=== PATIENT | male | born 1950 | race Caucasian/White ===

== ENCOUNTER 2016-06-19 18:53 | Emergency (ER) | payer MEDICARE, OTHER ==
[2016-06-19] MEDS ORDERED: Nitroglycerin 2% Ointment 1 INCH/1 GM Packet ONE (19:13)
[2016-06-19] MEDS ORDERED: Morphine Sulfate 2 MG/ML SYRINGE ONE ×2 (19:28→20:02)
--- NOTE | 2016-06-19 19:39 | RAD ---
PORTABLE CHEST ONE VIEW 06/19/16 at 7:11 p.m. HISTORY: Right sided chest pain. FINDINGS/IMPRESSION: Comparison is made with the exam of 04/27/16. The heart is enlarged. There is increased density in the retrocardiac region. No pneumothoraces or l arge effusions are seen. There is no evidence of rona pulmonary edema. POS: [facility]
[2016-06-19 19:44] LABS: #Basophils 0.1 thou/uL (0.0-0.2); #Eosinphils 0.3 thou/uL (0.0-0.7); #Lymphocytes 1.6 thou/uL (1.20-3.40); #Monocytes 0.6 thou/uL (0.11-0.59); #Neutrophils 7.7 thou/uL (1.40-6.50); %Eosinophils 2.6 % (0.0-10.0); %Lymphocytes 15.4 % (21.0-51.0); %Monocytes 5.8 % (0.0-10.0); Hematocrit 41.2 % (42.0-52.0); Mean Platelet Volume 5.2 fL (7.4-10.4); Red Blood Cell (RBC) Count 4.59 mill/uL (4.70-6.10); White Blood Cell (WBC) Count 10.2 thou/uL (4.8-10.8)
[2016-06-19 19:56] LABS: PTT 30.5 SEC (22.9-36.1); Prothrombin Time 13.8 SEC (12.0-14.7)
[2016-06-19 20:01] LABS: ALT (SGPT) 24 U/L (0-55); AST (SGOT) 22 U/L (5-34); Alkaline Phosphatase 107 U/L (40-150); Anion Gap 20 mmol/L (10-20); BUN (Urea Nitrogen) 41 mg/dL (8.4-25.7); Bilirubin, Total 0.3 mg/dL (0.2-1.2); Calc. Creatinine Clearance 0 mL/min (70-130); Calcium 8.4 mg/dL (7.8-10.44); Carbon Dioxide 17 mmol/L (23-31); Chloride 107 mmol/L (98-107); Estimated GFR-MDRD 15; Globulin 2.6 g/dL (2.4-3.5); Protein, Total 6.4 g/dL (5.8-8.1)
[2016-06-19 20:03] LABS: Troponin I 0.012 ng/mL (< 0.028)
--- NOTE | 2016-06-19 20:55 | CT ---
CT OF THE CHEST WITHOUT CONTRAST 06/19/16 COMPARISON: None. HISTORY: Right sided chest pain since noon today. Patient began developing jaw pain about two to three hours ago. TECHNIQUE: Multiple contiguous axial images were obtained in a CT of the chest without contrast. Coronal reform ats were performed. FINDINGS: The patient has a small left pleural effusion. No suspicious pulmonary masses are seen. No focal inf iltrates are seen in the lungs. The heart is normal in size. There is a small pericardial effusion. Calcifications are seen in the coronary arteries and aorta. There is aneurysmal dilatation of the as cending aorta which measures 5.6 cm in greatest dimension. The descending aorta is normal in caliber . There is a trace amount of ascites adjacent to the liver. The patient is status post cholecystectomy . The other visualized subdiaphragmatic structures are unremarkable. The osseous structures are unremarkable. The chest wall soft tissues are unremarkable. IMPRESSION: 1. Small left pleural effusion. 2. Interval dilatation of the ascending aorta. POS: [facility]
--- NOTE | 2016-06-19 21:36 | ERRECORD ---
[facility] EMERGENCY RECORD HPI CHEST PAIN (21:37 JOHE) CHIEF COMPLAINT: Patient presents for evaluation of chest pain, ongoing. HISTORIAN: History provided by patient, Since 1200 today, patient reports gradual onset of pressure-like right sided chest pain which is constant, worsening, and radiates to the right shoulder, jaw and arm. Patient denies other symptoms including N&V, F&C, sweating, palpitations, SOB, abd. pain, leg pain/swelling, weakness, cough and other complaints. No trauma or recent illness. No personal or FH of CAD, DVT/PE, aneurysm (although later patient DID admit to having a thoracic aneurysm). LOCATION: Symptoms are localized, most severe in the right upper chest. QUALITY: Pain is dull in nature, described as pressure-like. SEVERITY: Maximum severity of symptoms severe, Currently symptoms are severe. TIME COURSE: Gradual onset of symptoms, Symptoms are worsening, are constant. ASSOCIATED WITH: No associated symptoms, No associated chills, No associated cough, No associated diaphoresis, No associated fever, No associated nausea, No associated palpitations, No associated shortness of breath, No associated trauma, No associated upper respiratory infection, No associated vomiting, Denies any other complaints. EXACERBATED BY: Patient's condition exacerbated by nothing. RELIEVED BY: Patient's condition relieved by nothing. RISK FACTORS: Coronary artery disease risk factors, No known cocaine use, no known coronary artery disease, no diabetes, no family history, include high cholesterol, include hypertension, no smoking, Thoracic aortic dissection risk factors, include aortic disease, no Burt Danlos syndrome, no first degree relative, include hypertension, no Marfan's syndrome, not , no history of Snell's disease, Pulmonary embolism risk factors, no coagulation disorder, no estrogen supplement, No [place] Filter, no immobilization, no malignancy, no morbid obesity, no , no prior deep vein thrombosis, no prior pulmonary embolism, no recent general anesthesia, no smoking, no surgery. HEART SCORE: Patients history is Moderately Suspicious (1), Patients ECG has Non specific repolarisation disturbance/LBTB/PM (1), Patients age is greater than 45 and less than 65 (1), Patient has equal to or greater than 3 risk factors or history of atherosclerotic disease (2), Patients Troponin is equal to or less than 1 times the normal limit (0), Total 5. WELLS CRITERIA FOR PE: No clinical signs and symptoms of a DVT (0), Patient does not have, or is likely to not have, a primary diagnosis of PE (0), Patient's heart rate is less than 100 (0), Patient has no history of immobilization within 3 days, nor any &a-1R&a+25V*p+0X*[id number]*c202B*c15G*c2P*p-0X&a-25V&a+1R Name: Wilbert Dela Cruz : 1950 M66 MedRec: [id number] AcctNum: [id number] Prepared: WedJun 19, 2016 21:52 by Interface Page 1 of 7 pMD [facility] EMERGENCY RECORD surgical history within the past 4 weeks (0), Patient has not had an objectively diagnosed PE or DVT previously (0), Patient does not have hemoptysis (0), Patient has not had treatment for malignancy within the last 6 months, nor palliative (0). ROS CONSTITUTIONAL: Historian denies chills, denies fatigue, denies fever, denies malaise, denies night sweats, denies weight loss. (21:42 JOHE) EYES: Historian denies eye pain, denies eye redness, denies vision changes. (21:42 JOHE) ENT: Historian denies otalgia, denies rhinorrhea, denies sore throat. (21:42 JOHE) CARDIOVASCULAR: Historian reports chest pain, radiation to, Historian denies diaphoresis, denies dyspnea on exertion, denies edema, denies orthopnea, denies paroxysmal nocturnal dyspnea, denies syncope, denies palpitations. (21:42 JOHE) RESPIRATORY: Historian denies cough, denies shortness of breath, denies stridor, denies wheezing. (21:42 JOHE) GI: Historian denies abdominal pain, denies diarrhea, denies nausea, denies vomiting. (21:42 JOHE) GENITOURINARY MALE: Historian denies dysuria, denies hematuria. (21:42 JOHE) MUSCULOSKELETAL: Historian denies arthralgias, denies back pain, denies myalgias, reports neck pain. (pain radiating to jaw). (21:42 JOHE) SKIN: Historian denies rash, denies skin changes, denies skin lesions. (21:42 JOHE) NEUROLOGIC: Historian denies confusion, denies dizziness, denies focal weakness, denies gait changes, denies headache, denies paralysis, denies paresthesias, denies seizures, denies sensory changes. (21:42 JOHE) HEMO/LYMPHATIC: Historian reports abnormal blood clotting, denies petechiae. takes coumadin. (21:43 JOHE) NOTES: All systems reviewed, negative except as described above. (21:42 JOHE) PAST MEDICAL HISTORY (19:08 [facility]) MEDICAL HISTORY: Flu vaccine up to date, Tetanus immunization up to date, Pneumococcal vaccine up to date, Past medical history includes history of hyperlipidemia, high cholesterol, currently being treated, Past medical history includes history of hypertension, which has been treated, Patient is compliant, Past medical history includes history of malignancy, primary site kidney, treated with surgery, Kidney Failure, Date of last treatment: 2003. AFIB. [facility]. MALE SURGICAL HISTORY: Surgical history of cholecystectomy, laparoscopic, Date of surgery 2011, BILAT SHOULDER- rotator cuff. Surgical history of nephrectomy, on the right, Date of surgery 2003. &a-1R&a+25V*p+0X*[id number]*c202B*c15G*c2P*p-0X&a-25V&a+1R Name: Wilbert Dela Cruz : 1950 M66 MedRec: [id number] AcctNum: [id number] Prepared: WedJun 19, 2016 21:52 by Interface Page 2 of 7 pMD [facility] EMERGENCY RECORD Neck surgery dics. Cardiac Ablation. Bilateral cataract. PSYCHIATRIC HISTORY: No previous psychiatric history. SOCIAL HISTORY: Patient drinks socially, every week, Patient denies drug use, Patient has no smoking history, Lives at home, with family. KNOWN ALLERGIES Penicillins Sulfa (Sulfonamide Antibiotics) CURRENT MEDICATIONS doxazosin: TABLET : Strength - 8 mg : ORAL Patient Dose: 1 tab(s) Oral once a day. (19:37 [facility]) NIFEdipine: TABLET, EXTENDED RELEASE 24 HR : Strength - 30 mg : ORAL Patient Dose: 1 tab(s) Oral once a day. (19:37 [facility]) Coumadin: TABLET : Strength - 5 mg : ORAL Patient Dose: 3.5 mg Oral See Notes.ONE A DAY FOR 2 DAYS, SKIP ONE DAY. (19:37 [facility]) Crestor: TABLET : Strength - 10 mg : ORAL Patient Dose: 10 mg Oral once a day. (19:38 [facility]) CoQ-10: CAPSULE : Strength - 100 mg : ORAL Patient Dose: 400 mg Oral once a day. (19:38 [facility]) Nathalie 3: CAPSULE : ORAL Patient Dose: 10 mg Oral 2 times a day. (19:40 [facility]) Vitamin D3: TABLET : Strength - 1,000 unit : ORAL Patient Dose: 1 tab(s) Oral once a day. (19:40 [facility]) VITAL SIGNS VITAL SIGNS: Pulse: 90, Resp: 20, Temp: 97.8 (Oral), Pain: 8 (Constant), O2 sat: 98 on Room Air, Time: 06/19/2016 18:55. (18:55 [facility]) BP: 164/99, Time: 06/19/2016 18:59. (18:59 [facility]) BP: 153/97, Pulse: 88, Resp: 20, Pain: 8, O2 sat: 97 on Room Air, Time: 06/19/2016 19:26. (19:26 [facility]) BP: 147/92, Pulse: 87, Resp: 18, Pain: 6, O2 sat: 96 on Room Air, Time: 06/19/2016 19:46. (19:46 [facility]) BP: 145/87, Pulse: 86, Resp: 18, O2 sat: 97 on Room Air, Time: 06/19/2016 20:15. (20:15 [facility]) BP: 141/82, Pulse: 91, Resp: 18, O2 sat: 95 on Room Air, Time: 06/19/2016 20:38. (20:38 [facility]) BP: 139/91, Pulse: 86, Resp: 22, O2 sat: 93 on Room Air, Time: 06/19/2016 21:00. (21:00 EPIE) &a-1R&a+25V*p+0X*[id number]*c202B*c15G*c2P*p-0X&a-25V&a+1R Name: Wilbert Dela Cruz : 1950 M66 MedRec: [id number] AcctNum: [id number] Prepared: WedJun 19, 2016 21:52 by Interface Page 3 of 7 D [facility] EMERGENCY RECORD PHYSICAL EXAM (21:43 JOHE) CONSTITUTIONAL: Vital Signs Reviewed, Patient appears non toxic, Patient alert and oriented to person, place and time. HEAD: Head exam normal, Head exam included findings of head atraumatic, normocephalic. EYES: Eye exam normal, Eye exam included findings of eyelids normal to inspection, Pupils equally round and reactive to light, Extraocular muscles intact, Conjunctiva normal. ENT: Pharynx exam normal, not injected, no swelling, symmetrical, Uvula exam normal, midline, no edema, Mouth exam normal, mucous membranes moist, no drooling, no lesions, no lacerations, no tongue elevation. NECK: Neck exam normal, Neck exam included findings of normal range of motion, Trachea midline, no carotid bruits, no tenderness, no abrasions, no contusions, no ecchymosis. RESPIRATORY CHEST: Respiratory and chest exam normal, Respiratory exam included findings of no respiratory distress, Breath sounds clear, No wheezing, No rales, No rhonchi, Breath sounds not absent, Breath sounds not diminished, Chest exam included findings of chest movement symmetrical, Chest expansion equal, CTAB; no chest wall tenderness. CARDIOVASCULAR: Heart rate regular rate and rhythm, Heart sounds with, systolic murmur present, grade 2/6, Carotids normal, Abdominal aorta normal, Pedal pulses normal, RRR, faint 2/6 syst. murmur LLSB, no R/G. + pulses equal and full all ext., no bruits, trace BLE edema. ABDOMEN MALE: Abdominal exam normal, Abdominal exam included findings of abdomen nontender, Bowel sounds normal, no distension, no mass, no pulsatile masses, no peritoneal signs, no rigidity, no guarding, no rebound, Soft, ND, NT, + BS. No pulsatile masses or bruits. BACK: Back exam normal, Back exam included findings of normal inspection, range of motion normal, no tenderness. UPPER EXTREMITY: Upper extremity exam normal, Upper extremity exam included findings of inspection normal, Range of motion normal, Motor strength normal, Radial pulse normal. LOWER EXTREMITY: Lower extremity exam normal, Lower extremity exam included findings of inspection normal, Range of motion normal, Motor strength normal, Sensation intact, Posterior tibial pulse normal, Pedal pulse normal, Edema present, no calf tenderness, no palpable cords, Trace BLE edema. No calf tenderness, redness or swelling. NEURO: Neuro exam normal, Erhard coma scale 15, Neuro exam findings include patient oriented to person, place and time, Speech normal, Gait normal, Cranial nerves intact, no focal motor deficits, no focal sensory deficits. SKIN: Skin exam normal, Skin exam included findings of skin warm, dry, and normal in color, no rash. PSYCHIATRIC: Psychiatric exam included findings of patient oriented to person place and time, Normal affect, Judgment normal, &a-1R&a+25V*p+0X*[id number]*c202B*c15G*c2P*p-0X&a-25V&a+1R Name: Wilbert Dela Cruz : 1950 M66 MedRec: [id number] AcctNum: [id number] Prepared: WedJun 19, 2016 21:52 by Interface Page 4 of 7 pMD [facility] EMERGENCY RECORD Insight normal. EKG INTERPRETATION (18:58 JOHE) 12 LEAD EKG INTERPRETATION: 12 lead EKG interpreted by Emergency Department Physician at time of study, 12 lead EKG shows, first degree AV Block, Rate (beats per minute): 91, with no ectopics, Compared with previous EKG from, 01/02/2016, Similar to old EKG, Conduction with, nonspecific intraventricular conduction delay, ST segments normal, T waves normal, Erin, left, No other findings, Borderline LBBB, 1mm ST elevation in v2, 2mm in v3; EKG appears unchanged compared to EKG 01/01/2017 (aside from a-fib on old EKG). RADIOLOGYINTERPRETATION CHEST: Chest CT, Other findings: FINDINGS: The patient has a small left pleural effusion. No suspicious pulmonary masses are seen. No focal inf iltrates are seen in the lungs. The heart is normal in size. There is a small pericardial effusion. Calcifications are seen in the coronary arteries and aorta. There is aneurysmal dilatation of the as cending aorta which measures 5.6 cm in greatest dimension. The descending aorta is normal in caliber . There is a trace amount of ascites adjacent to the liver. The patient is status post cholecystectomy . The other visualized subdiaphragmatic structures are unremarkable. The osseous structures are unremarkable. The chest wall soft tissues are unremarkable. IMPRESSION: 1. Small left pleural effusion. 2. Interval dilatation of the ascending aorta., FINDINGS/IMPRESSION: Comparison is made with the exam of 04/27/16. The heart is enlarged. There is increased density in the retrocardiac region. No pneumothoraces or large effusions are seen. There is no evidence of rona pulmonary edema. Dictated By: TARAN WORTHY Signed By:. (19:54 JOHE) MUSIC THERAPY TEACHER: Preliminary review of x-rays by, ED Physician, Radiologist, Preliminary review of CT scans by, Radiologist. (19:55 JOHE) MEDICATION ADMINISTRATION SUMMARY Drug Name: morphine injection, Dose Ordered: 2 mg, Route: IV Push, Status: Given, Time: 20:05 06/19/2016, Drug Name: morphine injection, Dose Ordered: 2 mg, Route: IV Push, Status: Given, Time: 19:30 06/19/2016, Drug Name: Nitro-Bid transdermal, Dose Ordered: 1 inch, Route: &a-1R&a+25V*p+0X*[id number]*c202B*c15G*c2P*p-0X&a-25V&a+1R Name: Wilbert Dela Cruz : 1950 M66 MedRec: [id number] AcctNum: [id number] Prepared: WedJun 19, 2016 21:52 by Interface Page 5 of 7 pMD [facility] EMERGENCY RECORD Topical, Status: Given, Time: 19:24 06/19/2016, Drug Name: aspirin oral, Dose Ordered: 325 mg, Route: Oral, Status: Given, Time: 19:22 06/19/2016, Detailed record available in Medication Service section. DOCTOR NOTES TEXT: Cardiology paged regarding EKG. (19:07 JOHE) Discussed patient with Cardiology. EKG faxed to their office [phone]. Addendum: After reviewing EKG, Dr. Meneses (cardiology) says does not quite meet criteria for LBBB, and to check troponin and cardiac enzymes, and let him know if they are elevated. (19:43 JOHE) Patient reports pain improved but still present after medications. BP improved. Discussed results. Patient reports he has known about aortic aneurysm, and has had prior CT. Reviewed old records available through PACS, and pt. had a MAKENNA showing 5.2 cm thoracic aneurysm in 52.6mm. Discussed with patient that while may be similar size, given chest pain with radiation to jaw and shoulder, cannot completely rule out enlargement or early dissection. Recommend transfer to a hospital with CVS capability for monitoring. Also discussed that it is possible to have unstable angina without elevated troponin. Patient refuses, wants to go home. Discussed that we can arrange peritoneal dialysis for him at any hospital he goes to. Discussed that if patient leaves he can have worsening condition, SD, rupture of aortic aneurysm, or disability as a result. Patient is awake, alert, and oriented, verbalizes understanding of the risks, and still wants to go home. AMA form signed. Discussed in detail with patient that he needs to f/u with a physician BERTHA, and if he changes his mind or develops more symptoms he is to return to ED or call 911. Pt. and family verbalized understanding and agreed to f/u or return to ED. (21:28 JOHE) DATA REVIEWED: Lab data reviewed, Xray data reviewed, Reviewed EKG. (21:28 JOHE) PROBLEM LIST No recorded problems DIAGNOSIS (21:14 JOHE) FINAL: PRIMARY: CHEST PAIN UNSPECIFIED, ADDITIONAL: ascending aortic aneurysm, pericardial effusion, pleural effusion. PRESCRIPTION (21:16 JOHE) nitroglycerin sublingual: TABLET, SUBLINGUAL : 0.4 mg : SUBLINGUAL : Quantity: 1 Unit: tab(s) Route: SUBLINGUAL Schedule: See Notes Dispense: 30 Unit: tab(s) May substitute. Refills: No Refills . NOTES: One tablet (0.4mg) sublingual every five minutes as needed for chest pain. Call 911 if still having pain after three tablets. &a-1R&a+25V*p+0X*[id number]*c202B*c15G*c2P*p-0X&a-25V&a+1R Name: Wilbert Dela Cruz : 1950 M66 MedRec: [id number] AcctNum: [id number] Prepared: WedJun 19, 2016 21:52 by Interface Page 6 of 7 pMD [facility] EMERGENCY RECORD No Refills. DISPOSITION PATIENT: Disposition Type: Eloped, Disposition: Against Medical Advice, Condition: Improved. (21:14 ED) Patient left the department. (21:27 [facility]) Canas: IRVING=DAIJA Medina, Kelli WARD=MD Randal, Aries [facility]=DAIJA Ramos, Trudy &a-1R&a+25V*p+0X*[id number]*c202B*c15G*c2P*p-0X&a-25V&a+1R Name: Wilbert Dela Cruz : 1950 M66 MedRec: [id number] AcctNum: [id number] Prepared: WedJun 19, 2016 21:52 by Interface Page 7 of 7 pMD [facility]
--- NOTE | 2016-06-19 22:02 | PICIS ---
[facility] EMERGENCY RECORD TRIAGE (WedJun 19, 2016 18:58 [facility]) TRIAGE NOTES: RIGHT SIDED CHEST PAIN SINCE NOON TODAY. "FEELS LIKE SOMETHINGS SITTING ON ME". JAW PAIN STARTED 2-3 HOURS AGO. PAIN RADIATES DOWN RIGHT ARM. (WedJun 19, 2016 18:58 [facility]) PATIENT: NAME: Wilbert Dela Cruz, AGE: 66, GENDER: male, : Wed1950, TIME OF GREET: WedJun 19, 2016 18:53, PREFERRED LANGUAGE: Citizen Of [place], ETHNICITY: Not or , ECODE BILLING MAP: [facility], SSN: [id number], Zip Code: [address], PHONE: , , , PERSON ID: [id number], PCP: Al WEI LUKE. (WedJun 19, 2016 18:58 [facility]) KG WEIGHT: 81.7 (est.). (19:01 BDON) COMPLAINT: CHEST PAIN; JAW PAIN. (WedJun 19, 2016 18:58 [facility]) ADMISSION: URGENCY: 2 Emergent, ADMISSION SOURCE: Home, TRANSPORT: CAR, BED: ER *TR1. (WedJun 19, 2016 18:58 LK) PAIN: Location RIGHT CHEST, Pain is constant, Onset was 06/19/2016 12:00, No aggravating factors, No relieving factors, Notes: RADIATING DOWN RIGHT ARM. (19:08 [facility]) IMMUNIZATIONS: Flu vaccine up to date, Tetanus immunization up to date, Pneumococcal vaccine up to date. (19:08 [facility]) SIRS SCORING: Heart Rate 55-109 (0), Temp range 96.8-101.1 (0), respiratory rate 12-24 (0), Mental Status altered: no (0). (19:08 [facility]) TRIAGE SCREENING: Patient denies suicidal ideation, Patient denies presence of domestic violence. (19:08 [facility]) TREATMENTS IN PROGRESS: Treatments given Prehospital: none. (19:08 [facility]) PROVIDERS: TRIAGE NURSE: Trudy Ramos RN. (WedJun 19, 2016 18:58 [facility]) VITAL SIGNS: Pulse 90, Resp 20, Temp 97.8, (Oral), Pain 8, (Constant), O2 Sat 98, on Room Air, Time 06/19/2016 18:55. (18:55 [facility]) PREVIOUS VISIT ALLERGIES: Penicillins, Sulfa (Sulfonamide Antibiotics). (WedJun 19, 2016 18:58 [facility]) Penicillins, Sulfa (Sulfonamide Antibiotics). (19:08 [facility]) KNOWN ALLERGIES Penicillins Sulfa (Sulfonamide Antibiotics) CURRENT MEDICATIONS doxazosin: TABLET : Strength - 8 mg : ORAL Patient Dose: 1 tab(s) Oral once a day. (19:37 [facility]) NIFEdipine: TABLET, EXTENDED RELEASE 24 HR : Strength - 30 mg : ORAL Patient Dose: 1 tab(s) Oral once a day. (19:37 [facility]) Coumadin: TABLET : Strength - 5 mg : ORAL Patient Dose: 3.5 mg Oral See Notes.ONE A DAY FOR 2 DAYS, &a-1R&a+25V*p+0X*a2207P*c202B*c15G*c2P*p-0X&a-25V&a+1R Name: Wilbert Dela Cruz : 1950 M66 MedRec: [id number] AcctNum: [id number] Prepared: WedJun 19, 2016 21:58 by Interface Page 1 of 16 pMD [facility] EMERGENCY RECORD SKIP ONE DAY. (19:37 [facility]) Crestor: TABLET : Strength - 10 mg : ORAL Patient Dose: 10 mg Oral once a day. (19:38 [facility]) CoQ-10: CAPSULE : Strength - 100 mg : ORAL Patient Dose: 400 mg Oral once a day. (19:38 [facility]) [place] 3: CAPSULE : ORAL Patient Dose: 10 mg Oral 2 times a day. (19:40 [facility]) Vitamin D3: TABLET : Strength - 1,000 unit : ORAL Patient Dose: 1 tab(s) Oral once a day. (19:40 [facility]) VITAL SIGNS VITAL SIGNS: Pulse: 90, Resp: 20, Temp: 97.8 (Oral), Pain: 8 (Constant), O2 sat: 98 on Room Air, Time: 06/19/2016 18:55. (18:55 [facility]) BP: 164/99, Time: 06/19/2016 18:59. (18:59 [facility]) BP: 153/97, Pulse: 88, Resp: 20, Pain: 8, O2 sat: 97 on Room Air, Time: 06/19/2016 19:26. (19:26 [facility]) BP: 147/92, Pulse: 87, Resp: 18, Pain: 6, O2 sat: 96 on Room Air, Time: 06/19/2016 19:46. (19:46 [facility]) BP: 145/87, Pulse: 86, Resp: 18, O2 sat: 97 on Room Air, Time: 06/19/2016 20:15. (20:15 [facility]) BP: 141/82, Pulse: 91, Resp: 18, O2 sat: 95 on Room Air, Time: 06/19/2016 20:38. (20:38 [facility]) BP: 139/91, Pulse: 86, Resp: 22, O2 sat: 93 on Room Air, Time: 06/19/2016 21:00. (21:00 [facility]) NURSING ASSESSMENT: CARDIOVASCULAR (19:10 [facility]) CONSTITUTIONAL: Complex assessment performed, Patient arrives ambulatory, Gait steady, History obtained from patient, Patient cooperative, Patient alert, Oriented to person, place and time, Skin warm, Skin dry, Skin normal in color, Mucous membranes pink, Mucous membranes moist, Patient is well-groomed, Patient complains of RIGHT-SIDED CHEST PAIN. PAIN: pressure pain, to the right chest, Pain radiates, to the right arm, to the jaw, constant, on a scale 0-10 patient rates pain as 8. CARDIOVASCULAR: Cardiovascular assessment findings include heart rate normal, Heart rhythm, first degree AV Block, Heart sounds normal, Left radial pulse +3(easily palpated, considered normal), Right radial pulse +3(easily palpated, considered normal), Left dorsalis pedis pulse +3(easily palpated, considered normal), Right dorsalis pedis pulse +3(easily palpated, considered normal), No associated diaphoresis, no associated dyspnea, no associated dizziness, No history of pulmonary embolism, No history of DVT or leg swelling. &a-1R&a+25V*p+0X*o3119Q*c202B*c15G*c2P*p-0X&a-25V&a+1R Name: Wilbert Dela Cruz : 1950 M66 MedRec: [id number] AcctNum: [id number] Prepared: WedJun 19, 2016 21:58 by Interface Page 2 of 16 pMD [facility] EMERGENCY RECORD RESPIRATORY/CHEST: Breath sounds clear, Respiratory assessment findings include respiratory effort easy, Respirations regular, Conversing normally, Neck and chest exam findings include trachea midline, Chest expansion equal, Chest movement symmetrical, no associated cough noted, no associated fever. SAFETY: Side rails up, Cart/Stretcher in lowest position, Family at bedside, Call light within reach, Hospital ID band on. NURSING ASSESSMENT: SKIN (19:53 [facility]) TUBES AND PORTS: Dialysis shunt present, to RIGHT AC, with thrill, No signs of infection at shunt site, NOT CURRENTLY BEING USED., Peritoneal dialysis catheter present, to LLQ, Dialysate fluid clear, No signs of infection at insertion site. NURSING PROCEDURE: BEDSIDE RADIOLOGY (19:18 [facility]) BEDSIDE RADIOLOGY: Bedside radiology performed by Caryn (X-Ray Tech), Portable chest x-ray performed. NURSING PROCEDURE: SHIPPING AND RECEIVING (19:00 EPIE) SHIPPING AND RECEIVING: Patient placed on cardiac rehabilitation program director, Patient placed on non-invasive blood pressure monitor, Patient placed on continuous pulse oximetry. FOLLOW-UP: After procedure, alarms set and on, After procedure, patient tolerating monitoring. NURSING PROCEDURE: COMMUNICATIONS (19:10 EPIE) COMMUNICATIONS: Other notification, Name Answering service for silvestre., contacted at [phone], Reason for notification ERMD clarification of EKG. 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 NURSING PROCEDURE: DISCHARGE NOTE (21:25 [facility]) DISCHARGE: Patient signed out against medical advice, ambulating without assistance, family driving, accompanied by //partner, Summary of Care printed/ provided, Discharge instructions given to patient, Simple or moderate discharge teaching performed, by DAIJA Yates, Prescriptions given and instructions on side effects given, Name of prescription(s) given: nitro. BELONGINGS: Belongings and valuables with patient upon arrival to the Emergency Department include:, Belongings and valuables with patient at time of discharge include:, Belongings remain with patient, Valuables remain with patient. NURSING PROCEDURE: EKG CHART (18:58 [facility]) PATIENT IDENTIFIER: Patient actively involved in identification process, Patient's identity verified by patient stating name, Patient's identity verified by patient stating date, Patient's identity verified by hospital ID alice. &a-1R&a+25V*p+0X*j7573F*c202B*c15G*c2P*p-0X&a-25V&a+1R Name: Wilbert Dela Cruz : 1950 M66 MedRec: [id number] AcctNum: [id number] Prepared: WedJun 19, 2016 21:58 by Interface Page 3 of 16 [facility] EMERGENCY RECORD EK lead EKG performed on the left chest, done by DAIJA Yates, first EKG. NURSING PROCEDURE: IV PATIENT IDENITIFIER: Patient actively involved in identification process, Patient's identity verified by patient stating name, Patient's identity verified by patient stating date, Patient's identity verified by hospital ID alice. (19:15 [facility]) IV SITE 1: IV established, to the left hand, using an 18 gauge catheter, in two attempts, IV site prepped with Chloroprep, Saline lock established, Flushed with normal saline (mls): 10mLs, Labs drawn at time of placement, labeled in the presence of the patient and sent to lab, Notes: IV site C/D/I. no pain, redness, or swelling. IV start kit/extension tubing used. 1 UNSUCCESSFUL ATTEMPT BY DAIJA GAMEZ TO LEFT AC. (19:15 [facility]) NOTES: Notes: IV DC with catheter intact. Pressure and dressing applied. (21:22 EPIE) SAFETY: Side rails up, Cart/Stretcher in lowest position, Call light within reach, Hospital ID band on. (19:15 [facility]) NURSING PROCEDURE: TRANSPORT TO TESTS TRANSPORT TO TESTS: Patient transported to CT scan, via cart, Accompanied by x-ray hydraulic technician. (20:24 [facility]) Patient transported to CT scan, Accompanied by x-ray hydraulic technician, Patient arrived in location at 2019, Patient departed location at 2034. (20:57 [facility]) FOLLOW-UP: After procedure, patient returned to emergency department. (20:37 [facility]) ORDER DETAILS Order Name: B type Natriuretic Peptide, Status: Active, Time: 19:09 06/19/2016, User: ED, - Ordered for: MD Tee John, - Entered by: MD Tee John - WedJun 19, 2016 19:09, - Quantity: 1, Order Name: SHIPPING AND RECEIVING ED, Status: Done, Time: 19:12 06/19/2016, User: IRVING, - Ordered for: MD Tee John, - Entered by: MD Tee John - WedJun 19, 2016 19:09, - Quantity: 1, Order Name: Cardiac Profile w/CKMB & Troponin - I, Status: Active, Time: 19:09 06/19/2016, User: ED, - Ordered for: MD Tee John, - Entered by: MD Tee John - WedJun 19, 2016 19:09, - Quantity: 1, Order Name: CBC with Differential, Status: Active, Time: 19:09 06/19/2016, User: ED, - Ordered for: MD Tee John, - Entered by: MD Tee John - WedJun 19, 2016 19:09, &a-1R&a+25V*p+0X*y0593F*c202B*c15G*c2P*p-0X&a-25V&a+1R Name: Wilbert Dela Cruz : 1950 M66 MedRec: [id number] AcctNum: [id number] Prepared: WedJun 19, 2016 21:58 by Interface Page 4 of 16 [facility] EMERGENCY RECORD - Quantity: 1, Order Name: Comprehensive Metabolic Panel, Status: Active, Time: 19:09 06/19/2016, User: ED, - Ordered for: MD Tee John, - Entered by: MD Tee John - WedJun 19, 2016 19:09, - Quantity: 1, Order Name: CT Chest WO Con, Status: Active, Time: 20:12 06/19/2016, User: ED, - Ordered for: MD Tee John, - Entered by: MD Tee John - WedJun 19, 2016 20:12, - Quantity: 1, Order Name: EKG 12 Lead in Emergency Room, Status: Active, Time: 19:09 06/19/2016, User: ED, - Ordered for: MD Tee John, - Entered by: MD Tee John - WedJun 19, 2016 19:09, - Quantity: 1, Order Name: ERRT Pulse Oximeter ER, Status: Active, Time: 19:09 06/19/2016, User: ED, - Ordered for: MD Tee John, - Entered by: MD Tee John - WedJun 19, 2016 19:09, - Quantity: 1, Order Name: Protime with INR, Status: Active, Time: 19:09 06/19/2016, User: ED, - Ordered for: MD Tee John, - Entered by: MD Tee John - WedJun 19, 2016 19:09, - Quantity: 1, Order Name: PTT, Status: Active, Time: 19:09 06/19/2016, User: ED, - Ordered for: MD Tee John, - Entered by: MD Tee John - WedJun 19, 2016 19:09, - Quantity: 1, Order Name: SALINE LOCK, Status: Done, Time: 19:33 06/19/2016, User: DAVIDSON, - Ordered for: MD Tee John, - Entered by: MD Tee John - WedJun 19, 2016 19:09, - Quantity: 1, Order Name: XR Chest 1 View Portable, Status: Active, Time: 19:09 06/19/2016, User: ED, - Ordered for: MD Tee John, - Entered by: MD Tee John - WedJun 19, 2016 19:09, - Quantity: 1. MEDICATION ADMINISTRATION SUMMARY Drug Name: morphine injection, Dose Ordered: 2 mg, Route: IV Push, Status: Given, Time: 20:05 06/19/2016, Drug Name: morphine injection, Dose Ordered: 2 mg, Route: IV Push, Status: Given, Time: 19:30 06/19/2016, Drug Name: Nitro-Bid transdermal, Dose Ordered: 1 inch, Route: Topical, Status: Given, Time: 19:24 06/19/2016, Drug Name: aspirin oral, Dose Ordered: 325 mg, Route: Oral, Status: &a-1R&a+25V*p+0X*s1035Q*c202B*c15G*c2P*p-0X&a-25V&a+1R Name: Wilbert Dela Cruz : 1950 M66 MedRec: [id number] AcctNum: [id number] Prepared: WedJun 19, 2016 21:58 by Interface Page 5 of 16 pMD [facility] EMERGENCY RECORD Given, Time: 19:22 06/19/2016, Detailed record available in Medication Service section. MEDICATION SERVICE aspirin oral: Order: aspirin oral (aspirin) - Dose: 325 mg : Oral Schedule: Now Ordered by: Aries Tee MD Entered by: Aries Tee MD WedJun 19, 2016 19:10 , Acknowledged by: Kelli Medina RN WedJun 19, 2016 19:13 Documented as given by: Trudy Ramos RN WedJun 19, 2016 19:22 Patient, Medication, Dose, Route and Time verified prior to administration. Amount given: 324MG, Site: Medication administered P.O., Patient appears Awake and alert- acceptable, Correct patient, time, route, dose and medication confirmed prior to administration, Patient advised of actions and side-effects prior to administration, Allergies confirmed and medications reviewed prior to administration. morphine injection: Order: morphine injection (morphine sulfate) - Dose: 2 mg : IV Push Schedule: Now Ordered by: Aries Tee MD Entered by: Aries Tee MD WedJun 19, 2016 19:19 , Acknowledged by: Trudy Ramos RN WedJun 19, 2016 19:26 Documented as given by: Trudy Ramos RN WedJun 19, 2016 19:30 Patient, Medication, Dose, Route and Time verified prior to administration. Amount given: 2MG, IV SITE #1 IVP, initial medication, Slowly, Awake and alert- acceptable, Catheter placement confirmed via flush prior to administration, IV site without signs or symptoms of infiltration during medication administration, No swelling during administration, No drainage during administration, IV flushed after administration, Correct patient, time, route, dose and medication confirmed prior to administration, Patient advised of actions and side-effects prior to administration, Allergies confirmed and medications reviewed prior to administration. morphine injection: Order: morphine injection (morphine sulfate) - Dose: 2 mg : IV Push Schedule: Now Ordered by: Aries Tee MD Entered by: Aries Tee MD WedJun 19, 2016 20:01 Documented as given by: Trudy Ramos RN WedJun 19, 2016 20:05 Patient, Medication, Dose, Route and Time verified prior to administration. Amount given: 2MG, IV SITE #1 IVP, repeat same medication, Slowly, Awake and alert- acceptable, Catheter placement confirmed via flush prior to administration, IV site without signs or symptoms of infiltration during medication administration, No swelling during administration, No drainage during administration, IV flushed after administration, Correct patient, time, route, dose and medication &a-1R&a+25V*p+0X*q8517G*c202B*c15G*c2P*p-0X&a-25V&a+1R Name: Wilbert Dela Cruz : 1950 M66 MedRec: [id number] AcctNum: [id number] Prepared: WedJun 19, 2016 21:58 by Interface Page 6 of 16 pMD [facility] EMERGENCY RECORD confirmed prior to administration, Patient advised of actions and side-effects prior to administration, Allergies confirmed and medications reviewed prior to administration. Nitro-Bid transdermal: Order: Nitro-Bid transdermal (nitroglycerin) - Dose: 1 inch : Topical Schedule: Now Ordered by: Aries Tee MD Entered by: Aries Tee MD WedJun 19, 2016 19:11 , Acknowledged by: Kelli Medina RN WedJun 19, 2016 19:13 Documented as given by: Trudy Ramos RN WedJun 19, 2016 19:24 Patient, Medication, Dose, Route and Time verified prior to administration. Amount given: 1INCH, Skin cleansed prior to administration, Correct patient, time, route, dose and medication confirmed prior to administration, Patient advised of actions and side-effects prior to administration, Allergies confirmed and medications reviewed prior to administration, Advised not to ambulate without assistance, Patient in position of comfort, Side rails up, Cart in lowest position, Family at bedside. HPI CHEST PAIN (21:37 [facility]) CHIEF COMPLAINT: Patient presents for evaluation of chest pain, ongoing. HISTORIAN: History provided by patient, Since 1200 today, patient reports gradual onset of pressure-like right sided chest pain which is constant, worsening, and radiates to the right shoulder, jaw and arm. Patient denies other symptoms including N&V, F&C, sweating, palpitations, SOB, abd. pain, leg pain/swelling, weakness, cough and other complaints. No trauma or recent illness. No personal or FH of CAD, DVT/PE, aneurysm (although later patient DID admit to having a thoracic aneurysm). LOCATION: Symptoms are localized, most severe in the right upper chest. QUALITY: Pain is dull in nature, described as pressure-like. SEVERITY: Maximum severity of symptoms severe, Currently symptoms are severe. TIME COURSE: Gradual onset of symptoms, Symptoms are worsening, are constant. ASSOCIATED WITH: No associated symptoms, No associated chills, No associated cough, No associated diaphoresis, No associated fever, No associated nausea, No associated palpitations, No associated shortness of breath, No associated trauma, No associated upper respiratory infection, No associated vomiting, Denies any other complaints. EXACERBATED BY: Patient's condition exacerbated by nothing. RELIEVED BY: Patient's condition relieved by nothing. RISK FACTORS: Coronary artery disease risk factors, No known cocaine use, no known coronary artery disease, no diabetes, no family history, include high cholesterol, include &a-1R&a+25V*p+0X*o7510B*c202B*c15G*c2P*p-0X&a-25V&a+1R Name: Wilbert Dela Cruz : 1950 M66 MedRec: [id number] AcctNum: [id number] Prepared: WedJun 19, 2016 21:58 by Interface Page 7 of 16 pMD [facility] EMERGENCY RECORD hypertension, no smoking, Thoracic aortic dissection risk factors, include aortic disease, no Burt Danlos syndrome, no first degree relative, include hypertension, no Marfan's syndrome, not , no history of Snell's disease, Pulmonary embolism risk factors, no coagulation disorder, no estrogen supplement, No Cement Filter, no immobilization, no malignancy, no morbid obesity, no , no prior deep vein thrombosis, no prior pulmonary embolism, no recent general anesthesia, no smoking, no surgery. HEART SCORE: Patients history is Moderately Suspicious (1), Patients ECG has Non specific repolarisation disturbance/LBTB/PM (1), Patients age is greater than 45 and less than 65 (1), Patient has equal to or greater than 3 risk factors or history of atherosclerotic disease (2), Patients Troponin is equal to or less than 1 times the normal limit (0), Total 5. WELLS CRITERIA FOR PE: No clinical signs and symptoms of a DVT (0), Patient does not have, or is likely to not have, a primary diagnosis of PE (0), Patient's heart rate is less than 100 (0), Patient has no history of immobilization within 3 days, nor any surgical history within the past 4 weeks (0), Patient has not had an objectively diagnosed PE or DVT previously (0), Patient does not have hemoptysis (0), Patient has not had treatment for malignancy within the last 6 months, nor palliative (0). ROS CONSTITUTIONAL: Historian denies chills, denies fatigue, denies fever, denies malaise, denies night sweats, denies weight loss. (21:42 [facility]) EYES: Historian denies eye pain, denies eye redness, denies vision changes. (21:42 [facility]) ENT: Historian denies otalgia, denies rhinorrhea, denies sore throat. (21:42 [facility]) CARDIOVASCULAR: Historian reports chest pain, radiation to, Historian denies diaphoresis, denies dyspnea on exertion, denies edema, denies orthopnea, denies paroxysmal nocturnal dyspnea, denies syncope, denies palpitations. (21:42 [facility]) RESPIRATORY: Historian denies cough, denies shortness of breath, denies stridor, denies wheezing. (21:42 JO[facility]) GI: Historian denies abdominal pain, denies diarrhea, denies nausea, denies vomiting. (21:42 [facility]) GENITOURINARY MALE: Historian denies dysuria, denies hematuria. (21:42 [facility]) MUSCULOSKELETAL: Historian denies arthralgias, denies back pain, denies myalgias, reports neck pain. (pain radiating to jaw). (21:42 JOHE) SKIN: Historian denies rash, denies skin changes, denies skin lesions. (21:42 [facility]) NEUROLOGIC: Historian denies confusion, denies dizziness, denies focal weakness, denies gait changes, denies headache, denies &a-1R&a+25V*p+0X*z6887U*c202B*c15G*c2P*p-0X&a-25V&a+1R Name: Wilbert Dela Cruz : 1950 M66 MedRec: [id number] AcctNum: [id number] Prepared: WedJun 19, 2016 21:58 by Interface Page 8 of 16 pMD [facility] EMERGENCY RECORD paralysis, denies paresthesias, denies seizures, denies sensory changes. (21:42 [facility]) HEMO/LYMPHATIC: Historian reports abnormal blood clotting, denies petechiae. takes coumadin. (21:43 [facility]) NOTES: All systems reviewed, negative except as described above. (21:42 [facility]) PAST MEDICAL HISTORY (19:08 [facility]) MEDICAL HISTORY: Flu vaccine up to date, Tetanus immunization up to date, Pneumococcal vaccine up to date, Past medical history includes history of hyperlipidemia, high cholesterol, currently being treated, Past medical history includes history of hypertension, which has been treated, Patient is compliant, Past medical history includes history of malignancy, primary site kidney, treated with surgery, Kidney Failure, Date of last treatment: 2003. AFIB. DAILY HOME DIALYSIS. MALE SURGICAL HISTORY: Surgical history of cholecystectomy, laparoscopic, Date of surgery 2011, BILAT SHOULDER- rotator cuff. Surgical history of nephrectomy, on the right, Date of surgery 2003. Neck surgery dics. Cardiac Ablation. Bilateral cataract. PSYCHIATRIC HISTORY: No previous psychiatric history. SOCIAL HISTORY: Patient drinks socially, every week, Patient denies drug use, Patient has no smoking history, Lives at home, with family. PHYSICAL EXAM (21:43 [facility]) CONSTITUTIONAL: Vital Signs Reviewed, Patient appears non toxic, Patient alert and oriented to person, place and time. HEAD: Head exam normal, Head exam included findings of head atraumatic, normocephalic. EYES: Eye exam normal, Eye exam included findings of eyelids normal to inspection, Pupils equally round and reactive to light, Extraocular muscles intact, Conjunctiva normal. ENT: Pharynx exam normal, not injected, no swelling, symmetrical, Uvula exam normal, midline, no edema, Mouth exam normal, mucous membranes moist, no drooling, no lesions, no lacerations, no tongue elevation. NECK: Neck exam normal, Neck exam included findings of normal range of motion, Trachea midline, no carotid bruits, no tenderness, no abrasions, no contusions, no ecchymosis. RESPIRATORY CHEST: Respiratory and chest exam normal, Respiratory exam included findings of no respiratory distress, Breath sounds clear, No wheezing, No rales, No rhonchi, Breath sounds not absent, Breath sounds not diminished, Chest exam included findings of chest movement symmetrical, Chest expansion equal, CTAB; no chest wall tenderness. CARDIOVASCULAR: Heart rate regular rate and rhythm, Heart sounds with, systolic murmur present, grade 2/6, Carotids normal, Abdominal aorta normal, Pedal pulses &a-1R&a+25V*p+0X*j8743U*c202B*c15G*c2P*p-0X&a-25V&a+1R Name: Wilbert Dela Cruz : 1950 M66 MedRec: [id number] AcctNum: [id number] Prepared: WedJun 19, 2016 21:58 by Interface Page 9 of 16 pMD [facility] EMERGENCY RECORD normal, RRR, faint 2/6 syst. murmur LLSB, no R/G. + pulses equal and full all ext., no bruits, trace BLE edema. ABDOMEN MALE: Abdominal exam normal, Abdominal exam included findings of abdomen nontender, Bowel sounds normal, no distension, no mass, no pulsatile masses, no peritoneal signs, no rigidity, no guarding, no rebound, Soft, ND, NT, + BS. No pulsatile masses or bruits. BACK: Back exam normal, Back exam included findings of normal inspection, range of motion normal, no tenderness. UPPER EXTREMITY: Upper extremity exam normal, Upper extremity exam included findings of inspection normal, Range of motion normal, Motor strength normal, Radial pulse normal. LOWER EXTREMITY: Lower extremity exam normal, Lower extremity exam included findings of inspection normal, Range of motion normal, Motor strength normal, Sensation intact, Posterior tibial pulse normal, Pedal pulse normal, Edema present, no calf tenderness, no palpable cords, Trace BLE edema. No calf tenderness, redness or swelling. NEURO: Neuro exam normal, [place] coma scale 15, Neuro exam findings include patient oriented to person, place and time, Speech normal, Gait normal, Cranial nerves intact, no focal motor deficits, no focal sensory deficits. SKIN: Skin exam normal, Skin exam included findings of skin warm, dry, and normal in color, no rash. PSYCHIATRIC: Psychiatric exam included findings of patient oriented to person place and time, Normal affect, Judgment normal, Insight normal. LAB INTERPRETATION (21:34 [facility]) INTERPRETATION: I reviewed the lab results, All labs normal except as noted below, CBC abnormal, Hemoglobin decreased, Hematocrit decreased, Chemistry abnormal, BUN elevated, Creatinine elevated, Bicarbonate decreased, Cardiac enzymes abnormal, CK-MB normal, Troponin normal, BNP elevated, Cardiac enzymes otherwise normal, PT normal, PTT normal. EVENTS TRANSFER: Triage to Emergency Emergency Room *TR1. (WedJun 19, 2016 18:58 [facility]) Removed from Emergency Emergency Room *TR1. (21:27 [facility]) RADIOLOGYINTERPRETATION CHEST: Chest CT, Other findings: FINDINGS: The patient has a small left pleural effusion. No suspicious pulmonary masses are seen. No focal inf iltrates are seen in the lungs. The heart is normal in size. There is a small pericardial effusion. Calcifications are seen in the coronary arteries and aorta. There is aneurysmal dilatation of the as &a-1R&a+25V*p+0X*k9674V*c202B*c15G*c2P*p-0X&a-25V&a+1R Name: Wilbert Dela Cruz : 1950 M66 MedRec: [id number] AcctNum: [id number] Prepared: WedJun 19, 2016 21:58 by Interface Page 10 of 16 pMD [facility] EMERGENCY RECORD cending aorta which measures 5.6 cm in greatest dimension. The descending aorta is normal in caliber . There is a trace amount of ascites adjacent to the liver. The patient is status post cholecystectomy . The other visualized subdiaphragmatic structures are unremarkable. The osseous structures are unremarkable. The chest wall soft tissues are unremarkable. IMPRESSION: 1. Small left pleural effusion. 2. Interval dilatation of the ascending aorta., FINDINGS/IMPRESSION: Comparison is made with the exam of 04/27/16. The heart is enlarged. There is increased density in the retrocardiac region. No pneumothoraces or large effusions are seen. There is no evidence of rona pulmonary edema. Dictated By: TARAN WORTHY Signed By:. (19:54 JOHE) JAVA PROGRAMMER: Preliminary review of x-rays by, ED Physician, Radiologist, Preliminary review of CT scans by, Radiologist. (19:55 JOHE) EKG INTERPRETATION (18:58 JOHE) 12 LEAD EKG INTERPRETATION: 12 lead EKG interpreted by Emergency Department Physician at time of study, 12 lead EKG shows, first degree AV Block, Rate (beats per minute): 91, with no ectopics, Compared with previous EKG from, 01/02/2016, Similar to old EKG, Conduction with, nonspecific intraventricular conduction delay, ST segments normal, T waves normal, [place], left, No other findings, Borderline LBBB, 1mm ST elevation in v2, 2mm in v3; EKG appears unchanged compared to EKG 01/01/2017 (aside from a-fib on old EKG). DOCTOR NOTES TEXT: Cardiology paged regarding EKG. (19:07 JOHE) Discussed patient with Cardiology. EKG faxed to their office [phone]. Addendum: After reviewing EKG, Dr. Meneses (cardiology) says does not quite meet criteria for LBBB, and to check troponin and cardiac enzymes, and let him know if they are elevated. (19:43 JOHE) Patient reports pain improved but still present after medications. BP improved. Discussed results. Patient reports he has known about aortic aneurysm, and has had prior CT. Reviewed old records available through PACS, and pt. had a MAKENNA showing 5.2 cm thoracic aneurysm in 52.6mm. Discussed with patient that while may be similar size, given chest pain with radiation to jaw and shoulder, cannot completely rule out enlargement or early dissection. Recommend transfer to a hospital with CVS capability for monitoring. Also discussed that it is possible to have unstable angina without elevated troponin. Patient refuses, wants to go home. Discussed that we can arrange peritoneal &a-1R&a+25V*p+0X*q4076Y*c202B*c15G*c2P*p-0X&a-25V&a+1R Name: Wilbert Dela Cruz : 1950 M66 MedRec: [id number] AcctNum: [id number] Prepared: WedJun 19, 2016 21:58 by Interface Page 11 of 16 pMD [facility] EMERGENCY RECORD dialysis for him at any hospital he goes to. Discussed that if patient leaves he can have worsening condition, MT, rupture of aortic aneurysm, or disability as a result. Patient is awake, alert, and oriented, verbalizes understanding of the risks, and still wants to go home. AMA form signed. Discussed in detail with patient that he needs to f/u with a physician BERTHA, and if he changes his mind or develops more symptoms he is to return to ED or call 911. Pt. and family verbalized understanding and agreed to f/u or return to ED. (21:28 JOHE) DATA REVIEWED: Lab data reviewed, Xray data reviewed, Reviewed EKG. (21:28 JOHE) PROBLEM LIST No recorded problems DIAGNOSIS (21:14 JOHE) FINAL: PRIMARY: CHEST PAIN UNSPECIFIED, ADDITIONAL: ascending aortic aneurysm, pericardial effusion, pleural effusion. DISPOSITION PATIENT: Disposition Type: Eloped, Disposition: Against Medical Advice, Condition: Improved. (21:14 JOHE) Patient left the department. (21:27 [facility]) INSTRUCTION (21:17 JOHE) DISCHARGE: ATYPICAL CHEST PAIN UNKNOWN CAUSE, ABDOMINAL AORTIC ANEURYSM (STABLE), PLEURAL EFFUSION. FOLLOWUP: Al WEI, JAMES, Internal Medicine, [address] [facility] [address], , MD Sarah, Earl, Cardiology, [address] [address], , Follow up with Primary Care Physician in 1-2 days, Follow up with Specialist as soon as possible. SPECIAL: Follow-up with your PCP. PRESCRIPTION (21:16 JOHE) nitroglycerin sublingual: TABLET, SUBLINGUAL : 0.4 mg : SUBLINGUAL : Quantity: 1 Unit: tab(s) Route: SUBLINGUAL Schedule: See Notes Dispense: 30 Unit: tab(s) May substitute. Refills: No Refills . NOTES: One tablet (0.4mg) sublingual every five minutes as needed for chest pain. Call 911 if still having pain after three tablets. No Refills. IMAGING *EKG: Image captured from scanner. (20:14 [facility]) AMA/LWBS: Image captured from scanner. (21:28 [facility]) *SUPPLY CHARGE SHEET: Image captured from scanner. (21:28 [facility]) &a-1R&a+25V*p+0X*h7159W*c202B*c15G*c2P*p-0X&a-25V&a+1R Name: Wilbert Dela Cruz : 1950 M66 MedRec: [id number] AcctNum: [id number] Prepared: WedJun 19, 2016 21:58 by Interface Page 12 of 16 pMD [facility] EMERGENCY RECORD ADMIN (21:46 JOHE) DIGITAL SIGNATURE: MD Tee John. RESULTS RADIOLOGY: XR Chest 1 View Portable Observe DT: WedJun 19, 2016 19:11, CXRP PORTABLE CHEST ONE VIEW 06/19/16 at 7:11 p.m. HISTORY: Right sided chest pain. FINDINGS/IMPRESSION: Comparison is made with the exam of 04/27/16. The heart is enlarged. There is increased density in the retrocardiac region. No pneumothoraces or l arge effusions are seen. There is no evidence of rona pulmonary edema. POS: [facility] . (20:33 JOHE) CT Chest WO Con Observe DT: WedJun 19, 2016 20:13, THX CT OF THE CHEST WITHOUT CONTRAST 06/19/16 COMPARISON: None. HISTORY: Right sided chest pain since noon today. Patient began developing jaw pain about two to three hours ago. TECHNIQUE: Multiple contiguous axial images were obtained in a CT of the chest without contrast. Coronal reform ats were performed. FINDINGS: The patient has a small left pleural effusion. No suspicious pulmonary masses are seen. No focal inf iltrates are seen in the lungs. The heart is normal in size. There is a small pericardial effusion. Calcifications are seen in the coronary arteries and aorta. There is aneurysmal dilatation of the as cending aorta which measures 5.6 cm in greatest dimension. The descending aorta is normal in caliber &a-1R&a+25V*p+0X*l1387U*c202B*c15G*c2P*p-0X&a-25V&a+1R Name: Wilbert Dela Cruz : 1950 M66 MedRec: [id number] AcctNum: [id number] Prepared: WedJun 19, 2016 21:58 by Interface Page 13 of 16 pMD [facility] EMERGENCY RECORD . There is a trace amount of ascites adjacent to the liver. The patient is status post cholecystectomy . The other visualized subdiaphragmatic structures are unremarkable. The osseous structures are unremarkable. The chest wall soft tissues are unremarkable. IMPRESSION: 1. Small left pleural effusion. 2. Interval dilatation of the ascending aorta. POS: [facility] . (21:33 JOHE) LABORATORY: CBC with Differential Collection DT: WedJun 19, 2016 19:21, White Blood Cell (WBC) Count 10.2 thou/uL, Range (4.8-10.8), *Red Blood Cell (RBC) Count 4.59 - L mill/uL, Range (4.70-6.10), *Hemoglobin 12.7 - L g/dL, Range (14.0-18.0), *Hematocrit 41.2 - L %, Range (42.0-52.0), Mean Corpuscular Volume 89.7 fl, Range (80.0-94.0), Mean Corpuscular Hemoglobin 27.6 pg, Range (27.0-31.0), *Mean Corpuscular HGB CONC 30.8 - L g/dL, Range (32.0-36.0), *RBC Distribution Width 18.8 - H %, Range (11.5-14.5), HX, Platelet Count 207 thou/uL, Range (130-400), *Mean Platelet Volume 5.2 - L fL, Range (7.4-10.4), *%Neutrophils 75.3 - H %, Range (42.0-75.0), *%Lymphocytes 15.4 - L %, Range (21.0-51.0), %Monocytes 5.8 %, Range (0.0-10.0), %Eosinophils 2.6 %, Range (0.0-10.0), %Basophils 1.0 %, Range (0.0-1.0), *#Neutrophils 7.7 - H thou/uL, Range (1.40-6.50), #Lymphocytes 1.6 thou/uL, Range (1.20-3.40), *#Monocytes 0.6 - H thou/uL, Range (0.11-0.59), #Eosinphils 0.3 thou/uL, Range (0.0-0.7), #Basophils 0.1 thou/uL, Range (0.0-0.2). (19:50 [facility]) PTT Collection DT: WedJun 19, 2016 19:21, See comment below , Anticoagulant? NONE Medical Necessity SUSPECT COAGULOPATHY , PTT 30.5 SEC, Range (22.9-36.1). ([facility] Protime with INR Collection DT: WedJun 19, 2016 19:21, See comment below , Anticoagulant? NONE Medical Necessity SUSPECT COAGULOPATHY , Prothrombin Time 13.8 SEC, Range (12.0-14.7), INR-International Normal Ratio 1.0 , ATTENTION: READ CAREFULLY , &a-1R&a+25V*p+0X*l6918B*c202B*c15G*c2P*p-0X&a-25V&a+1R Name: Wilbert Dela Cruz : 1950 M66 MedRec: [id number] AcctNum: [id number] Prepared: WedJun 19, 2016 21:58 by Interface Page 14 of 16 D [facility] EMERGENCY RECORD The, recommended therapeutic ranges for oral anticoagulant treatments are: , , Low Intensity: 1.5 - 2.0 Moderate Intensity: 2.0, - 3.0 High Intensity (1): 2.5 - 3.5 High, Intensity (2): 3.0 - 4.0 CRITICAL: >, 4.0 . (: [facility]) Cardiac Profile w/CKMB & TropI Collection DT: WedJun 19, 2016 19:21, CKMB 3.2 ng/mL, Range (0-6.6), Troponin I 0.012 ng/mL, Range (< 0.028), Reference Range , 0.00 - 0.028 ng/mL Negative 0.029 - 0.29 ng/mL , Indeterminate Greater or Equal to 0.3 ng/mL Strongly suggests MT , . (: [facility]) Comprehensive Metabolic Panel Collection DT: WedJun 19, 2016 19:21, Sodium 140 mmol/L, Range (136-145), Potassium 3.6 mmol/L, Range (3.5-5.1), Chloride 107 mmol/L, Range (98-107), *Carbon Dioxide 17 - L mmol/L, Range (23-31), Anion Gap 20 mmol/L, Range (10-20), *BUN (Urea Nitrogen) 41 - H mg/dL, Range (8.4-25.7), *Creatinine 4.07 - H mg/dL, Range (0.7-1.3), Estimated GFR-MDRD 15 , Reference Range for Estimated GFR: Greater than 90, mL/min/1.73 m2 NOTE: The MDRD equation has not been validated for use, with the elderly (over 70 years of age), women, patients with, serious comorbid condition or persons with extremes of body size, muscle, mass, or nutritional status. , Glucose 94 mg/dL, Range (80-115), Calcium 8.4 mg/dL, Range (7.8-10.44), Bilirubin, Total 0.3 mg/dL, Range (0.2-1.2), Protein, Total 6.4 g/dL, Range (5.8-8.1), NOTE: Plasma values are generally 0.3 to 0.5 g/dL higher than serum values, due to the presence of fibrinogen. , Albumin 3.8 g/dL, Range (3.4-4.8), Globulin 2.6 g/dL, Range (2.4-3.5), Alb/Glob Ratio 1.5 g/dL, Range (1.2-2.2), Alkaline Phosphatase 107 U/L, Range (40-150), AST (SGOT) 22 U/L, Range (5-34), ALT (SGPT) 24 U/L, Range (0-55). (20:06 ED) &a-1R&a+25V*p+0X*f1452E*c202B*c15G*c2P*p-0X&a-25V&a+1R Name: Wilbert Dela Cruz : 1950 M66 MedRec: [id number] AcctNum: [id number] Prepared: WedJun 19, 2016 21:58 by Interface Page 15 of 16 pMD [facility] EMERGENCY RECORD B type Natriuretic Peptide Collection DT: WedJun 19, 2016 19:21, *B type Natriuretic Peptide 282.8 - H pg/mL, Range (0-100). (20:33 ED) Canas: QUIN=DAIJA Pimentel, Massiel VILLATORO=DAIJA Medina, Kelli WARD=MD Randal, Aries GARCIA=AGUEDA Guajardo Kim LK[facility]=DAIJA Ramos, Trudy &a-1R&a+25V*p+0X*w1244W*c202B*c15G*c2P*p-0X&a-25V&a+1R Name: Wilbert Dela Cruz : 1950 M66 MedRec: [id number] AcctNum: [id number] Prepared: WedJun 19, 2016 21:58 by Interface Page 16 of 16 pMD [facility]
== END 2016-06-19 21:25 | disposition left against medical advice (07) ==
LOC: NAV ERS 18:53
DX: J90 Pleural effusion, not elsewhere classified (principal); I71.2 Thoracic aortic aneurysm, without rupture; E78.5 Hyperlipidemia, unspecified; E78.00 Pure hypercholesterolemia, unspecified; I10 Essential (primary) hypertension
CPT/HCPCS: 71010; 71250; 80053; 82553; 83880; 84484; 85025; 85610; 85730; 93005; 94760; 96374; 96376; J2270

== ENCOUNTER 2017-08-07 21:27 | Emergency (ER) | payer MEDICARE, OTHER ==
[2017-08-07] MEDS ORDERED: Pantoprazole 40 MG VIAL ONE (22:15)
[2017-08-07] MEDS ORDERED: Ondansetron HCl/PF 4 MG/2 ML Vial ONE (22:15)
[2017-08-07 22:25] LABS: #Basophils 0.1 thou/uL (0.0-0.2); #Eosinphils 0.1 thou/uL (0.0-0.7); #Lymphocytes 1.5 thou/uL (1.20-3.40); #Neutrophils 12.9 thou/uL (1.40-6.50); %Basophils 0.4 % (0.0-1.0); %Eosinophils 0.7 % (0.0-10.0); %Lymphocytes 9.4 % (21.0-51.0); %Monocytes 6.5 % (0.0-10.0); %Neutrophils 83.1 % (42.0-75.0); Hemoglobin 14.3 g/dL (14.0-18.0); Mean Corpuscular HGB CONC 32.7 g/dL (32.0-36.0); Mean Corpuscular Hemoglobin 29.5 pg (27.0-31.0); Mean Corpuscular Volume 90.1 fl (80.0-94.0); Mean Platelet Volume 7.1 fL (7.4-10.4); Platelet Count 133 thou/uL (130-400); RBC Distribution Width 14.3 % (11.5-14.5); Red Blood Cell (RBC) Count 4.84 mill/uL (4.70-6.10); White Blood Cell (WBC) Count 15.5 thou/uL (4.8-10.8)
[2017-08-07] MEDS ORDERED: Lidocaine Viscous Sol 2% 15 ml UD Cup ONE (22:31)
[2017-08-07] MEDS ORDERED: Mag-Al Plus 1200 MG/1200 MG/120 MG/30 ML UDCUP ONE (22:31)
[2017-08-07 22:40] LABS: ALT (SGPT) 23 U/L (8-55); AST (SGOT) 15 U/L (5-34); Alkaline Phosphatase 75 U/L (40-150); Anion Gap 15 mmol/L (10-20); BUN (Urea Nitrogen) 23 mg/dL (8.4-25.7); Bilirubin, Total 0.8 mg/dL (0.2-1.2); CK (CPK) 39 U/L (30-200); CKMB 1.6 ng/mL (0-6.6); Calc. Creatinine Clearance 0 mL/min (70-130); Calcium 9.4 mg/dL (7.8-10.44); Carbon Dioxide 20 mmol/L (23-31); Chloride 109 mmol/L (98-107); Estimated GFR-MDRD 45; Globulin 2.5 g/dL (2.4-3.5); Glucose 111 mg/dL (80-115); Lipase 25 U/L (8-78); Protein, Total 6.5 g/dL (5.8-8.1); Sodium 140 mmol/L (136-145); Troponin I 0.016 ng/mL (< 0.028)
--- NOTE | 2017-08-07 22:43 | RAD ---
ACUTE ABDOMINAL SERIES: 08/07/17 HISTORY: Upper abdominal pain for one week. Nausea and vomiting. CHEST X-RAY: COMPARISON: 06/19/16. There have been interval postsurgical changes related to median sternotomy and cardiac valve replacem ent. Cardiac silhouette does appear mildly enlarged but is magnified by projection. Pulmonary vascula ture is within normal limits. Lungs are clear. No other interval change. UPRIGHT AND SUPINE VIEWS OF THE ABDOMEN: Multiple surgical clips overlie the right abdomen. There is a nonspecific bowel gas pattern. Phleboli ths overlie the pelvis. Degenerative changes are noted in the spine. No suspicious calcifications are seen. IMPRESSION: Nonspecific bowel gas pattern. POS: [facility]
[2017-08-07 23:05] LABS: Bilirubin Negative (Negative); Blood, Urine Trace (Negative); Clarity Clear (Clear); Glucose, Urine (Dipstick) 100 mg/dL (Negative); Leukocyte Negative (Negative); Nitrite Negative (Negative); Protein, Urine (Dipstick) 30 mg/dL (Neg-Trace); Specific Gravity, Urine 1.025 (1.005-1.030); pH, Urine 5.5 (5.0-9.0)
[2017-08-07 23:08] LABS: Bacteria/HPF None Seen HPF (None Seen); RBC/HPF 0-3 HPF (0-3); Squamous Epithelial None Seen HPF (0-3); WBC/HPF None Seen HPF (0-3)
== END 2017-08-07 23:15 | disposition home or self-care (01) ==
LOC: NAV ERS 21:27
DX: R10.12 Left upper quadrant pain (principal); R10.816 Epigastric abdominal tenderness; E78.5 Hyperlipidemia, unspecified; I10 Essential (primary) hypertension; I48.91 Unspecified atrial fibrillation; Z79.899 Other long term (current) drug therapy; Z79.82 Long term (current) use of aspirin
CPT/HCPCS: 74022; 80053; 81003; 81015; 82553; 83690; 84484; 85025; 93005; 96374; 96375; C9113; J2405

== ENCOUNTER 2018-03-03 12:28 | Outpatient (CLI) | payer MEDICARE, OTHER ==
--- NOTE | 2018-03-03 14:08 | CT ---
NONCONTRAST CT THORAX: DATE: 03/03/2018. HISTORY: Abnormal skin nodule. The patient has palpable abnormality/growth inferior in the left lower chest b elow the level of the nipple. COMPARISON: 06/19/2016. FINDINGS: Lack of intravenous contrast does limit evaluation of the vascular structures and mediastinum. The h eart is mildly enlarged. There are postsurgical changes related to median sternotomy and aortic valv e replacement. Vascular calcifications are seen in the coronary arteries as well as involving the th oracic aorta. No definite abnormally enlarged lymph nodes are seen within the mediastinum or hilar regions. This exam is performed in expiratory phase of imaging, and there is evidence of dependent bibasilar a telectasis. Previously seen left pleural effusion on the study in 2017 has resolved with only minima l linear density which may be related to either atelectasis or scarring. There is a suggestion of a nodule at the left lung base measuring 9 mm. This is not thought to represent prominence of a pulmon alpa vessel given more peripheral location of the structure and findings are worrisome for a pulmonary nodule, but followup CT scan with IV contrast may be beneficial. No additional discrete pulmonary n odule or mass is seen. Remote left-sided rib fractures are present. A radiopaque marker was placed at the site of the patient's palpable abnormality. There is no solid or cystic lesion seen in this region. The marker does overlie the region of the costochondral juncti on which may account for the palpable abnormality. No soft tissue mass or enlarged lymph node is see n in this region. Post cholecystectomy changes are noted. IMPRESSION: 1. Approximately 10 mm pulmonary nodule left lower lobe. PET CT scan exam may be helpful for furthe r evaluation. No additional pulmonary nodule is seen. 2. There is no mass or cystic lesion seen in the region of the patient's palpable abnormality in the left lower chest anteriorly at the level of the marker below the level of the left nipple. However, the palpable marker does overlie the costochondral junction which may potentially account for the pa lpable abnormality. 3. Vascular calcifications of the coronary arteries and thoracic aorta. CODE T POS: [facility]
== END 2018-03-03 12:29 | disposition home or self-care (01) ==
LOC: NAV CT 12:28
PROVIDERS: ATTEND Internal Medicine
DX: R22.2 Localized swelling, mass and lump, trunk (principal); R91.1 Solitary pulmonary nodule; I25.10 Atherosclerotic heart disease of native coronary artery without angina pectoris; I70.0 Atherosclerosis of aorta
CPT/HCPCS: 71250

== ENCOUNTER 2018-09-04 10:44 | Emergency (ER) | payer MEDICARE, OTHER ==
[2018-09-04] MEDS ORDERED: Sodium Chloride 0.9% 1,000 ML ONE ×2 (11:05→13:19)
[2018-09-04] MEDS ORDERED: Ondansetron PF 4 MG/2 ML Vial ONE (11:05)
[2018-09-04] MEDS ORDERED: Morphine 4 MG/ML VIAL ONE (11:05)
[2018-09-04 11:40] LABS: Hemoglobin 16.1 g/dL (14.0-18.0); Mean Corpuscular HGB CONC 32.1 g/dL (32.0-36.0); Mean Corpuscular Hemoglobin 30.1 pg (27.0-31.0); Platelet Count 162 thou/uL (130-400); RBC Distribution Width 12.5 % (11.5-14.5); Red Blood Cell (RBC) Count 5.36 mill/uL (4.70-6.10); White Blood Cell (WBC) Count 21.2 thou/uL (4.8-10.8)
[2018-09-04 11:42] LABS: ALT (SGPT) 17 U/L (8-55); AST (SGOT) 17 U/L (5-34); Albumin 4.4 g/dL (3.4-4.8); Alkaline Phosphatase 85 U/L (40-150); Anion Gap 16 mmol/L (10-20); BUN (Urea Nitrogen) 24 mg/dL (8.4-25.7); Calc. Creatinine Clearance 0 mL/min (70-130); Calcium 9.7 mg/dL (7.8-10.44); Carbon Dioxide 24 mmol/L (23-31); Chloride 103 mmol/L (98-107); Estimated GFR-MDRD 59; Globulin 2.3 g/dL (2.4-3.5); Glucose 130 mg/dL (80-115); Lipase 527 U/L (8-78); Potassium 3.6 mmol/L (3.5-5.1); Protein, Total 6.7 g/dL (5.8-8.1); Sodium 139 mmol/L (136-145)
[2018-09-04 12:10] LABS: Lymphocytes 11 % (21-51); MDiff Complete? YES; Monocytes 5 % (0-10); Neutrophil 84 % (42-75); Platelet Morphology Comment Appears Adequate; RBC Morphology Normal
[2018-09-04] MEDS ORDERED: Labetalol 5 MG/ML SYRINGE (IV ROOM) ONE (12:17)
[2018-09-04] MEDS ORDERED: Fentanyl 100 MCG/2 ML VIAL ONE (12:33)
--- NOTE | 2018-09-04 12:40 | CT ---
ABDOMEN AND PELVIC CT SCAN WITHOUT CONTRAST: HISTORY: Abdominal pain. COMPARISON: 02/25/2014. FINDINGS: Interstitial prominence at each lung base. There is a pulmonary nodule of the left lower lobe, grossl y stable to a chest CT 03/03/2018, at 9 mm. Liver: Unremarkable. Gallbladder: Surgically absent. Pancreas: Fat stranding is present adjacent the proximal aspect of the pancreas, and abuts the bhavik sing duodenum. Spleen: Unremarkable. Adrenal glands: Right adrenal gland is surgically absent. No left adrenal mass. Kidneys: Right kidney is surgically absent. No acute abnormality of the atrophic left kidney. Right l ower quadrant renal transplant is present. It is limited in assessment by noncontrast technique. Bowel: Inflammation of the duodenum, adjacent the above described peripancreatic inflammation. Bowel is incompletely assessed without IV or enteric contrast. Urinary Bladder: Moderate distention Adenopathy: No adenopathy within the abdomen or pelvis. Free Air: No free air. Ascites: No ascites. Osseous structures: No acute osseous abnormalities. IMPRESSION: . Inflammation adjacent the proximal pancreas and the traversing duodenum. This could either relate to primary pancreatitis or duodenitis. Correlate with pancreatic enzymes values for further assessment. Evaluation is limited without IV or enteric contrast. 2. Redemonstration of left lung base pulmonary nodule. Correlate with report from CT thorax 03/03/20 18 for recommendations as were previously discussed. Transcribed Date/Time: 09/04/2018 1:00 PM
[2018-09-04] MEDS ORDERED: Aspirin Chewable 81 MG TAB ONE (13:00)
[2018-09-04] MEDS ORDERED: metroNIDAZOLE 500 MG/100 ML BAG ONE (13:07)
[2018-09-04] MEDS ORDERED: Ciprofloxacin Lactate/D5W 400 mg/200 ml Premix ONE (13:07)
--- NOTE | 2018-09-04 13:11 | RAD ---
EXAM: CHEST ONE VIEW HISTORY: Chest pain and elevated blood pressure. COMPARISON: 06/19/2016. FINDINGS: Postsurgical changes related to median sternotomy are noted. The cardiac silhouette is magnified by p rojection. Pulmonary vasculature is stable in appearance compared to prior exam. The left lung base is obscured due to overlying cardiac silhouette and soft tissue density limiting adequate evaluation. Right lung appears clear. The osseous structures are intact. IMPRESSION: Suboptimal evaluation of the left lung base. There is otherwise no acute cardiopulmonary process.
[2018-09-04 14:35] LABS: Bilirubin Negative (Negative); Blood, Urine Negative (Negative); Clarity Clear (Clear); Glucose, Urine (Dipstick) 100 mg/dL (Negative); Leukocyte Negative (Negative); Nitrite Negative (Negative); Protein, Urine (Dipstick) 30 mg/dL (Neg-Trace); Urobilinogen 0.2 mg/dL (0.2-1.0); pH, Urine 7.5 (5.0-9.0)
[2018-09-04 14:49] LABS: Bacteria/HPF Rare-Few HPF (None Seen); RBC/HPF 0-3 HPF (0-3); Squamous Epithelial 0-3 HPF (0-3); WBC/HPF 0-3 HPF (0-3)
== END 2018-09-04 14:10 | disposition short-term general hospital (02) ==
LOC: NAV ERS 10:44
DX: K85.90 Acute pancreatitis without necrosis or infection, unspecified (principal); R07.2 Precordial pain; D72.829 Elevated white blood cell count, unspecified; I10 Essential (primary) hypertension; E78.5 Hyperlipidemia, unspecified; I48.91 Unspecified atrial fibrillation; Z79.899 Other long term (current) drug therapy; Z79.82 Long term (current) use of aspirin
CPT/HCPCS: 36415; 71045; 74176; 80053; 81003; 81015; 83690; 84484; 85025; 87040; 93005; 94760; 96361; 96365; 96374; 96375; J0744; J2270; J2405; J3010; J7050

== ENCOUNTER 2020-01-01 12:43 | Outpatient (CLI) | payer MEDICARE, OTHER ==
[2020-01-01 13:25] LABS: Bilirubin Negative (Negative); Blood, Urine Small (Negative); Clarity Clear (Clear); Glucose, Urine (Dipstick) Negative (Negative); Ketone, Urine Negative (Negative); Leukocyte Trace (Negative); Nitrite Negative (Negative); Protein, Urine (Dipstick) Trace mg/dL (Neg-Trace); Urobilinogen 0.2 mg/dL (Less than 2); pH, Urine 5.5 (5.0-9.0)
[2020-01-01 13:34] LABS: RBC/HPF 0-3 HPF (0-3)
[2020-01-01 13:35] LABS: Squamous Epithelial 0-3 HPF (0-3)
== END 2020-01-01 12:44 | disposition home or self-care (01) ==
LOC: NAV LAB 12:43
PROVIDERS: ATTEND Internal Medicine
DX: Z51.81 Encounter for therapeutic drug level monitoring (principal); N18.6 End stage renal disease; I48.91 Unspecified atrial fibrillation; K85.30 Drug induced acute pancreatitis without necrosis or infection; R31.0 Gross hematuria; Z79.01 Long term (current) use of anticoagulants
CPT/HCPCS: 81003; 81015; 87086

== ENCOUNTER 2021-01-22 08:22 | Emergency (ER) | payer MEDICARE, OTHER ==
[2021-01-22] MEDS ORDERED: Aspirin 325 MG TAB ONE (09:03)
[2021-01-22] MEDS ORDERED: Aspirin Chewable 81 MG TAB ONE (09:04)
[2021-01-22 09:31] LABS: #Basophils 0.1 thou/uL (0.0-0.2); #Eosinphils 0.3 thou/uL (0.0-0.7); #Lymphocytes 1.5 thou/uL (1.20-3.40); #Monocytes 0.9 thou/uL (0.11-0.59); %Basophils 0.8 % (0.0-1.0); %Eosinophils 1.9 % (0.0-10.0); %Monocytes 6.2 % (0.0-10.0); %Neutrophils 81.1 % (42.0-75.0); Hemoglobin 13.6 g/dL (14.0-18.0); Mean Corpuscular HGB CONC 31.3 g/dL (32.0-36.0); Mean Corpuscular Hemoglobin 29.3 pg (27.0-31.0); Mean Corpuscular Volume 93.7 fL (78.0-98.0); Mean Platelet Volume 8.1 fL (7.4-10.4); Platelet Count 157 thou/uL (130-400); Red Blood Cell (RBC) Count 4.65 mill/uL (4.70-6.10); White Blood Cell (WBC) Count 14.7 thou/uL (4.8-10.8)
[2021-01-22 09:38] LABS: ALT (SGPT) 10 U/L (8-55); AST (SGOT) 11 U/L (5-34); Alkaline Phosphatase 73 U/L (40-110); Anion Gap 14 mmol/L (10-20); BUN (Urea Nitrogen) 20 mg/dL (8.4-25.7); Calc. Creatinine Clearance 0 mL/min (70-130); Calcium 9.2 mg/dL (7.8-10.44); Carbon Dioxide 22 mmol/L (23-31); Chloride 110 mmol/L (98-107); Globulin 2.4 g/dL (2.4-3.5); Glucose 111 mg/dL (80-115); Lipase 30 U/L (8-78); Potassium 3.5 mmol/L (3.5-5.1); Protein, Total 6.4 g/dL (5.8-8.1); Sodium 142 mmol/L (136-145)
[2021-01-23 02:13] LABS: SARS-CoV-2 PCR by NAA Not Detected (NotDetected)
== END 2021-01-22 10:25 | disposition home or self-care (01) ==
LOC: NAV ERS 08:22
DX: J06.9 Acute upper respiratory infection, unspecified (principal); B34.9 Viral infection, unspecified; Z20.822 Contact with and (suspected) exposure to COVID-19; E78.5 Hyperlipidemia, unspecified; I10 Essential (primary) hypertension; Z79.82 Long term (current) use of aspirin; Z79.899 Other long term (current) drug therapy
CPT/HCPCS: 71046; 80053; 83605; 83690; 84484; 85025; 93005; U0003; U0005

== ENCOUNTER 2021-06-01 21:55 | Emergency (ER) | payer MEDICARE, OTHER ==
[2021-06-02 00:12] LABS: #Basophils 0.1 thou/uL (0.0-0.2); #Eosinphils 0.2 thou/uL (0.0-0.7); #Lymphocytes 2.2 thou/uL (1.20-3.40); #Monocytes 0.7 thou/uL (0.11-0.59); #Neutrophils 9.7 thou/uL (1.40-6.50); %Basophils 0.8 % (0.0-1.0); %Eosinophils 1.3 % (0.0-10.0); %Lymphocytes 17.4 % (21.0-51.0); %Monocytes 5.2 % (0.0-10.0); %Neutrophils 75.3 % (42.0-75.0); Hemoglobin 14.2 g/dL (14.0-18.0); Mean Corpuscular HGB CONC 31.9 g/dL (32.0-36.0); Mean Corpuscular Hemoglobin 30.5 pg (27.0-31.0); Mean Corpuscular Volume 95.7 fL (78.0-98.0); Mean Platelet Volume 7.2 fL (7.4-10.4); Platelet Count 167 thou/uL (130-400); RBC Distribution Width 13.8 % (11.5-14.5); Red Blood Cell (RBC) Count 4.65 mill/uL (4.70-6.10); White Blood Cell (WBC) Count 12.9 thou/uL (4.8-10.8)
[2021-06-02 00:16] LABS: Prothrombin Time 12.9 sec (12.0-14.7)
[2021-06-02 00:17] LABS: PTT 29.1 sec (22.9-36.1)
[2021-06-02 00:25] LABS: ALT (SGPT) 18 U/L (8-55); AST (SGOT) 16 U/L (5-34); Albumin 4.3 g/dL (3.4-4.8); Alkaline Phosphatase 76 U/L (40-110); Anion Gap 17 mmol/L (10-20); BUN (Urea Nitrogen) 21 mg/dL (8.4-25.7); Bilirubin, Total 0.7 mg/dL (0.2-1.2); Calc. Creatinine Clearance 0 mL/min (70-130); Calcium 9.3 mg/dL (7.8-10.44); Carbon Dioxide 22 mmol/L (23-31); Chloride 107 mmol/L (98-107); Globulin 2.5 g/dL (2.4-3.5); Glucose 132 mg/dL (80-115); Potassium 3.7 mmol/L (3.5-5.1); Protein, Total 6.8 g/dL (5.8-8.1); Sodium 142 mmol/L (136-145)
== END 2021-06-02 00:30 | disposition short-term general hospital (02) ==
LOC: NAV ERS 21:55
DX: H53.8 Other visual disturbances (principal); R51.9 Headache, unspecified; E78.5 Hyperlipidemia, unspecified; E78.00 Pure hypercholesterolemia, unspecified; I48.91 Unspecified atrial fibrillation; Z79.82 Long term (current) use of aspirin; Z79.899 Other long term (current) drug therapy
CPT/HCPCS: 70450; 80053; 84484; 85025; 85610; 85652; 85730; 86140